=== PATIENT | male | born 1930 | race Caucasian/White ===

== ENCOUNTER 2017-08-02 08:15 | Emergency (ER) ==
[2017-08-02 08:41] VITALS: BP 125/67; TEMP 97.4; BMI 23.0
--- NOTE | 2017-08-02 09:03 | ED.PDOC ---
General ED Provider: Dr. GISELLE FAIR Chief Complaint: Fall Stated Complaint: Patient fell at NH and hit head. He is confused which is status quo. Unable to give any history or ROS. Time Seen by Physician: 09:00 Mode of Arrival: Ambulance Information Source: Prison, EMT Exam Limitations: Dementia Primary Care Provider: NATHAN OROPEZA Nursing and Triage Documentation Reviewed and Agree: Yes Trauma/Injury Complaint Exam - Head Injury Complaint/Exam Location of Pain: Reports: Left, Scalp Mechanism of Injury: Reports: Trauma Onset/Duration: 1 hour ago Symptoms Are: Still present Initial Severity: Moderate Current Severity: Mild Aggravating: Reports: None Alleviating: Reports: None Associated Signs and Symptoms: Reports: Confusion (confusion is normal mental state, unchanged) Loss of Consciousness: Unknown SDH Risk Factors: Present: Male Cervical Spine Injury Risk Factors: Present: Distracting injuries C-Collar in Place: yes Backboard in Place: yes Immobilization Removed Post Exam: No Head Injury Findings: Present: Normal findings Focal Weakness: Present: None Focal Sensory Loss: Present: None Gait: Unable Gag Reflex Present: Yes Finger to Nose: Normal (doesn't follow commands, unable to test finger to nose) , Abnormal Rhomberg Test Positive: No Babinski Sign: Negative Right, Negative Left Head Picture: 1 - "goose egg" with central abrasion Review of Systems - Review Of Systems Constitutional: Reports: No symptoms (ROS not possible secondary to dementia), Other All Other Systems: Other (ROS not possible secondary to dementia) Past Medical History - Past Medical History Endocrine: Reports: Dyslipidemia (cholmeds) Cardiovascular: Reports: CAD, Hypertension Respiratory: Reports: None Hematological: Reports: None Gastrointestinal: Reports: GERD (gerdmeds) Genitourinary: Reports: Other (BPA) Neuro/Psych: Reports: Anxiety, Dementia (dementiameds) Musculoskeletal: Reports: None Cancer: Reports: Other (prostate surgery ) Other Pertinent Past Medical History: htn anx cad BPA prostate surgery dementiameds - Surgical History General Surgical History: Reports: Other (prostate surgery) - Family History Family History: Reports: Unknown - Social History Smoking Status: Never smoker Hx Substance Use: No Alcohol Screening: None Physical Exam - Physical Exam Appearance: Well-appearing, No pain distress, Well-nourished, Thin Ill-appearing: None Pain Distress: Mild Eyes: PINKY, EOMI, Conjunctiva clear ENT: Ears normal, Nose normal, Oropharynx normal Neck: Supple (in c-collar. Removed collar after Ct results reviewed. Neck unremarkable.) Respiratory: Airway patent, Breath sounds clear, Breath sounds equal, Respirations nonlabored Cardiovascular: RRR, Pulses normal, No rub, No murmur GI/: Soft, Nontender, No masses, Bowel sounds normal, No Organomegaly Musculoskeletal: Normal strength, ROM intact, No edema, No calf tenderness Skin: Warm, Dry, Normal color Neurological: Sensation intact, Motor intact, Reflexes intact, Cranial nerves intact, Disoriented, Alert to verbal, Alert to pain Psychiatric: Anxious (confused, doesn't appear to comprehend me or his circumstance) Interpretation - Radiology Interpretation Radiology Results: No acute changes Exam Interpreted: CT Scan Xray Comments: CT head Radiology Interpretation By: Radiologist Radiology Results: No acute changes Exam Interpreted: CT Scan Xray Comments: CT neck Critical Care Note - Critical Care Note Total Time (mins): 0 Course - Course Orders, Labs, Meds: Orders Category Date Time Status CT CERVICAL SPINE W/O CONTRAST Stat RADS 08/02/17 09:[address] HEAD W/O CONTRAST Stat RADS 08/02/17 09:09 Completed Vital Signs: Temp Pulse Resp BP Pulse Ox 08/02/17 08:20 97.4 F L 56 L 16 125/67 98 Departure - Departure Time of Disposition: 10:07 Disposition: TRANSFER SNF Discharge Problem: Abrasion of scalp, Contusion of scalp, Skin tear Instructions: Abrasion (ED), Skin Tear (ED) Condition: Good Pt referred to PMD for follow-up: No (see PCP if any problems) Allergies/Adverse Reactions: Allergies No Known Allergies Allergy (Verified 08/02/17 08:45) Home Medications: Ambulatory Orders Acetaminophen [Tylenol] 650 mg PO Q4H PRN 08/02/17 Alprazolam [Xanax] 0.5 mg PO BID 08/02/17 Aspirin/Dipyridamole [Aggrenox 25 mg-200 mg Capsule] 1 tab PO BID 08/02/17 Cyanocobalamin (Vitamin B-12) [B-12] 500 mcg PO DAILY 08/02/17 Donepezil HCl [Aricept] 10 mg PO DAILY 08/02/17 Finasteride 5 mg PO DAILY 08/02/17 Memantine HCl 10 mg PO BID 08/02/17 Multivitamin with Minerals [Multiple Vitamin] 1 each PO DAILY 08/02/17 Mupirocin Calcium [Bactroban] 15 gm TP Q12HR PRN 08/02/17 Rosuvastatin Calcium [Crestor] 5 mg PO BEDTIME 08/02/17 Sennosides/Docusate Sodium [Senna-Docusate Sodium Tablet] 1 each PO DAILY Tamsulosin HCl [Flomax] 0.4 mg PO DAILY 08/02/17 Disposition Discussed With: Other (NH staff)
--- NOTE | 2017-08-02 09:47 | CT ---
EXAM: CT head without contrast. HISTORY: Initial presentation for head trauma due to a fall. COMPARISON: None available. TECHNIQUE: Multiple axial images of the brain were obtained from the skull base through the vertex without intravenous contrast. FINDINGS: There is no intracranial hemorrhage or extraaxial collection. The lemus-white differentia tion is maintained without evidence for acute large vascular territory infarction. There are areas of periventricular and subcortical white matter low attenuation. The cortical sulci and cerebral ve ntricles are symmetrically enlarged. The basal cisterns are well visualized. There is no hydroceph alus, mass effect, or midline shift. The paranasal sinuses and mastoid air cells are clear. The ca lvarium is intact. IMPRESSION: 1. No acute intracranial abnormality. 2. Chronic small vessel ischemic changes and atrophy.
--- NOTE | 2017-08-02 09:53 | CT ---
EXAM: CT cervical spine without contrast. HISTORY: Initial presentation for neck injury due to a fall. COMPARISON: None available. TECHNIQUE: Multiple axial images of the cervical spine were obtained without intravenous contrast. Images were reformatted in the sagittal and coronal planes. FINDINGS: Approximately 0.2 cm retrolisthesis of C3 on C4 noted. There is less than 0.2 cm anterol isthesis of C7 on T1. Nonspecific sclerotic lesion is seen within the T1 vertebral body on sagittal image 39. Vertebral body heights are maintained without fracture. There is moderate loss of disc height at C3-4 through C6-7. Disc osteophyte formation flattens the ventral thecal sac at C3-4. No significant spinal stenosis identified. Disc osteophyte formation along with uncovertebral hypertr ophy and facet arthropathy cause multilevel neural foraminal narrowing, severe at C3-4 on the left a nd moderate to severe C4-5 on the right and more mild to moderate elsewhere. Paravertebral soft tis marlen are without acute abnormality.. Atherosclerotic calcifications are present. Right lobe of the thyroid not identified. Probable biapical scarring within the visualized lungs. IMPRESSION: No acute abnormality of the cervical spine.
== END 2017-08-02 10:32 ==
LOC: ED 08:15
DX: S00.03XA Contusion of scalp, initial encounter (principal); S00.01XA Abrasion of scalp, initial encounter; T14.8 Other injury of unspecified body region; W19.XXXA Unspecified fall, initial encounter; Y92.129 Unspecified place in nursing home as the place of occurrence of the external cause; Z79.899 Other long term (current) drug therapy
CPT/HCPCS: 99283

== ENCOUNTER 2017-08-15 14:20 | Inpatient (IN) ==
[2017-08-15 14:36] VITALS: BMI 19.4
[2017-08-15 15:07] LABS: ABG BASE EXCESS 1 (-2.0-2.0); ABG HCO3 23.9 (22.0-26.0); ABG PCO2 31.2 mmHg (35-45); ABG PH 7.492 (7.35-7.45); ABG TCO2 25 (22.0-28.0)
--- NOTE | 2017-08-15 15:11 | CT ---
EXAM: CT Head HISTORY: Altered mental status and cough COMPARISON: 08/14/2017 TECHNIQUE: CT head performed without contrast FINDINGS: There is no mass effect, midline shift, or intracranial hemmorhage. Gar white differenti ation is preserved. There is no extra-axial collection. The ventricles, sulci, and basal cisterns a re patent and symmetric. There is severe chronic ischemic disease of the white matter and cerebral v olume loss. There is no depressed calvarial fracture. Dolichoectasia right vertebral artery appears unchanged. The mastoid air cells are clear. There is worsening of the ethmoid air cells and right max illary sinus. There are intracranial atherosclerotic calcifications. IMPRESSION: 1. No acute intracranial abnormality. 2. Severe chronic ischemic disease of the white matter and cerebral volume loss. 3. Sinusitis
[2017-08-15 15:14] LABS: HEMATOCRIT 39.6 % (42.0-52.0); HEMOGLOBIN 13.8 g/dl (14.0-18.0); MEAN CORPUSCULAR HEMOGLOBIN 34.3 pg (27.0-31.0); MEAN CORPUSCULAR HGB CONC 34.8 (31.8-35.4); MEAN CORPUSCULAR VOLUME 98.5 fl (80.0-94.0); PLATELET COUNT 226 10^3/uL (140-440); RED BLOOD COUNT 4.02 10^6/ul (4.70-6.10); WHITE BLOOD COUNT 8.91 K/ul (4.2-10.2)
--- NOTE | 2017-08-15 15:15 | CT ---
EXAM: CT chest without contrast HISTORY: Cough COMPARISON: Chest x-ray 08/02/2015 and multiple prior chest x-rays TECHNIQUE: Serial axial images of the chest were obtained from the lung apices to the upper abdomen without contrast. These were viewed in multiple planes. FINDINGS: The thyroid is normal. The visualized vessels are unremarkable without aneurysm or stenos is. The heart is normal in size without pericardial effusion. There are nonpathologically enlarged lymph nodes with a precarinal lymph node measuring 0.8 cm in diameter. There is no pneumothorax. There is no effusion. There is consolidation in the right lower lobe with patchy ground-glass. There is airway thickening which extends into the right middle lobe. Airway t hickening in the left lower lobe is present. The left lower lobe measures 1.1 cm in diameter. The kidneys demonstrate an exophytic 2.3 cm low attenuation lesion suggestive of a cyst. There is a 0.8 cm nonobstructing stone on the left. The osseous structures are unremarkable. IMPRESSION: 1. Consolidation in the right lower lobe consistent with pneumonia. Scattered airway thickening, li flaquito representing airways spread of disease. 2. Left lower lobe pulmonary nodule measuring 1.1 cm in diameter. This may represent inflammation v ersus soft tissue nodule. Soft tissue sampling versus further evaluation with short-term follow-up C T or PET CT is recommended. 3. Nonobstructing left renal stone with left renal cyst present. 4. Nonpathologically enlarged lymph nodes may be reactive.
[2017-08-15 15:29] LABS: ANISOCYTOSIS NOT PRESENT (NOT PRESENT)
[2017-08-15 15:32] LABS: PROTHROMBIN TIME 10.8 SEC (9.3-11.0)
[2017-08-15 16:01] LABS: ALBUMIN 2.9 g/dL (3.4-5.0); ALBUMIN/GLOBULIN RATIO 0.59; ANION GAP 15.6; BILIRUBIN,TOTAL 0.6 mg/dL (0.00-1.20); BUN/CREATININE RATIO 31.87; CALCIUM 9.8 mg/dL (8.2-10.2); CREATININE 1.6 mg/dL (0.60-1.10); POTASSIUM 3.6 mmol/L (3.5-5.1); TOTAL PROTEIN 7.8 g/dL (5.8-8.1); TROPONIN I 0.013 ng/ml (0.0000-0.4000)
[2017-08-15 16:05] LABS: CREATINE KINASE MB 1.1 ng/ml (0.0-3.6)
[2017-08-15] MEDS ORDERED: TYLENOL PO PRN (16:14)
--- NOTE | 2017-08-15 16:19 | ED.PDOC ---
General ED Provider: Dr. MADALYN GREENE Chief Complaint: Shortness of Air Stated Complaint: ALTERED MENTAL STATUS Time Seen by Physician: 14:30 Mode of Arrival: Ambulance Information Source: Skilled Nursing, EMT Exam Limitations: No limitations Primary Care Provider: NATHAN OROPEZA Nursing and Triage Documentation Reviewed and Agree: Yes Neurological Complaint Exam - Altered Mental Status Complaint/Exam Current Mental Status: Agitation Last Known Well: 2 DAYS AGO Onset: Gradual Duration: 1 DAY Symptoms Are: Still present Timing: Constant Initial Severity: Mild Current Severity: Mild Eye Deviation Present: No Aggravating: Reports: None Alleviating: Reports: None Associated Signs and Symptoms: Reports: Weakness. Denies: Dizziness, Headache, Fever, Illness, Nuchal rigidity, Seizure, Nausea, Vomiting, Recently depressed, Trauma Related History: Reports: Similar episode Cardiac Risk Factors: Reports: None Related Surgical History: Reports: None Carotid Bruit Present: No Glascow Coma Scale (see protocol): 15 Nystagmus Present: No Gag Reflex Present: No Meningeal Signs Positive: No Focal Weakness: Present: None Focal Sensory Loss: Present: None Gait: Normal Babinski Sign: Negative Right, Negative Left Differential Diagnoses: Hypothermia, Hypoxia, Intoxication, Intracranial Bleed, Metabolic Disorder, Hypoglycemia, Seizure, Sepsis, CVA Review of Systems - Review Of Systems Constitutional: Reports: Malaise, Weakness Eyes: Reports: No symptoms Ears, Nose, Mouth, Throat: Reports: No symptoms Respiratory: Reports: No symptoms Cardiac: Reports: No symptoms GI: Reports: No symptoms : Reports: No symptoms Musculoskeletal: Reports: No symptoms Skin: Reports: No symptoms Neurological: Reports: Cognitive dysfunction Endocrine: Reports: No symptoms Hematologic/Lymphatic: Reports: No symptoms All Other Systems: Reviewed and Negative Past Medical History - Past Medical History Previously Healthy: Yes Endocrine: Reports: Dyslipidemia (cholmeds) Cardiovascular: Reports: CAD, Hypertension Respiratory: Reports: None Hematological: Reports: None Gastrointestinal: Reports: GERD (gerdmeds) Genitourinary: Reports: Other (BPA) Neuro/Psych: Reports: Anxiety, Dementia (dementiameds) Musculoskeletal: Reports: None Cancer: Reports: Other (prostate surgery ) Other Pertinent Past Medical History: htn anx cad BPA prostate surgery dementiameds - Surgical History General Surgical History: Reports: None, Other (prostate surgery) - Family History Family History: Reports: Unknown - Social History Smoking Status: Never smoker Hx Substance Use: No Alcohol Screening: None - Immunizations Tetanus Shot up to Date: Yes Physical Exam - Physical Exam Appearance: Ill-appearing Ill-appearing: Mild Pain Distress: Mild Eyes: PINKY, EOMI, Conjunctiva clear ENT: Dry mucosa Respiratory: Airway patent, Breath sounds clear, Breath sounds equal, Respirations nonlabored Cardiovascular: RRR, Pulses normal, No rub, No murmur GI/: Soft, Nontender, No masses, Bowel sounds normal, No Organomegaly Musculoskeletal: Normal strength, ROM intact, No edema, No calf tenderness Skin: Warm, Dry, Normal color Neurological: Sensation intact, Motor intact, Reflexes intact, Cranial nerves intact, Alert, Oriented Psychiatric: Affect appropriate, Mood appropriate Interpretation - Radiology Interpretation Radiology Interpretation By: Radiologist Radiology Results: Positive (PNEUMONIA) Physician Notification - Case Discussed Physician Notified: PMD Time of Notification: 16:19 (ADMITT) Admit To: Inpatient Critical Care Note - Critical Care Note Total Time (mins): 0 Course - Course Hematology/Chemistry: 08/21/17 04:30 08/21/17 04:30 Orders, Labs, Meds: Lab Review 08/15/17 08/15/17 08/15/17 14:29 15:00 15:00 WBC 8.91 RBC 4.02 L Hgb 13.8 L Hct 39.6 L MCV 98.5 H MCH 34.3 H MCHC 34.8 RDW Coeff of Madi 15.1 H Plt Count 226 Neutrophils % (Manual) 41.0 L Band Neutrophils % 52.0 H Lymphocytes % (Manual) 2.0 L Monocytes % (Manual) 3.0 Metamyelocytes % 2.0 Anisocytosis Not present PT INR APTT Puncture Site Rad O2 Saturation 93.0 L ABG pH 7.492 H ABG pCO2 31.2 L ABG pO2 61.0 L ABG HCO3 23.9 ABG Total CO2 25 ABG Base Excess 1 Sammy Test + FiO2 % 21.0 Sodium 146 H Potassium 3.6 Chloride 109 H Carbon Dioxide 25 Anion Gap 15.6 BUN 51 H Creatinine 1.60 H Estimated GFR (MDRD) 41.00 BUN/Creatinine Ratio 31.87 Glucose 147 H Lactic Acid Calcium 9.8 Total Bilirubin 0.60 AST 18 ALT 18 Alkaline Phosphatase 72 Total Creatine Kinase 163 CK-MB (CK-2) 1.1 CK-MB (CK-2) % 0.88019 Troponin I 0.0130 B-Natriuretic Peptide Total Protein 7.8 Albumin 2.9 L Globulin 4.9 Albumin/Globulin Ratio 0.59 Procalcitonin TSH 0.778 Free T4 0.86 08/15/17 08/15/17 08/15/17 15:00 15:00 15:00 WBC RBC Hgb Hct MCV MCH MCHC RDW Coeff of Madi Plt Count Neutrophils % (Manual) Band Neutrophils % Lymphocytes % (Manual) Monocytes % (Manual) Metamyelocytes % Anisocytosis PT 10.8 INR 1.06 APTT 27.0 Puncture Site O2 Saturation ABG pH ABG pCO2 ABG pO2 ABG HCO3 ABG Total CO2 ABG Base Excess Sammy Test FiO2 % Sodium Potassium Chloride Carbon Dioxide Anion Gap BUN Creatinine Estimated GFR (MDRD) BUN/Creatinine Ratio Glucose Lactic Acid 23.9 H Calcium Total Bilirubin AST ALT Alkaline Phosphatase Total Creatine Kinase CK-MB (CK-2) CK-MB (CK-2) % Troponin I B-Natriuretic Peptide Total Protein Albumin Globulin Albumin/Globulin Ratio Procalcitonin 3.47 TSH Free T4 08/15/17 15:00 WBC RBC Hgb Hct MCV MCH MCHC RDW Coeff of Madi Plt Count Neutrophils % (Manual) Band Neutrophils % Lymphocytes % (Manual) Monocytes % (Manual) Metamyelocytes % Anisocytosis PT INR APTT Puncture Site O2 Saturation ABG pH ABG pCO2 ABG pO2 ABG HCO3 ABG Total CO2 ABG Base Excess Sammy Test FiO2 % Sodium Potassium Chloride Carbon Dioxide Anion Gap BUN Creatinine Estimated GFR (MDRD) BUN/Creatinine Ratio Glucose Lactic Acid Calcium Total Bilirubin AST ALT Alkaline Phosphatase Total Creatine Kinase CK-MB (CK-2) CK-MB (CK-2) % Troponin I B-Natriuretic Peptide 105 H Total Protein Albumin Globulin Albumin/Globulin Ratio Procalcitonin TSH Free T4 Orders Category Date Time Status ABG DRAW REQUEST Stat CARDIO 08/15/17 14:29 Completed EKG-(ED ONLY) Stat CARDIO 08/15/17 14:26 Completed ED IV/MEDIPORT/POWERPORT .ONCE EMERGENCY 08/15/17 14:26 Completed ABG Stat LAB 08/15/17 14:29 Completed B-TYPE NATRIURETIC PEPTIDE Stat LAB 08/15/17 15:00 Completed BLOOD CULTURE Stat LAB 08/15/17 15:00 Completed CBC W/ AUTO DIFF Stat LAB 08/15/17 15:00 Completed COMPREHENSIVE METABOLIC PANEL Stat LAB 08/15/17 15:00 Completed CREATINE KINASE Stat LAB 08/15/17 15:00 Completed FREE T4 (FREE THYROXINE) Stat LAB 08/15/17 15:00 Completed LACTIC ACID Stat LAB 08/15/17 15:00 Completed MANUAL DIFFERENTIAL Stat LAB 08/15/17 15:00 Completed PARTIAL THROMBOPLASTIN TIME Stat LAB 08/15/17 15:00 Completed PROCALCITONIN Stat LAB 08/15/17 15:00 Completed PT WITH INR Stat LAB 08/15/17 15:00 Completed THYROID STIMULATING HORMONE Stat LAB 08/15/17 15:00 Completed TROPONIN I Stat LAB 08/15/17 15:00 Completed 0.9 % Sodium Chloride [Saline Flush] MEDS 08/15/17 14:26 Discontinued 1 syr IVF PRN PRN CT CHEST W/O CONTRAST Stat RADS 08/15/17 14:[address] HEAD W/O CONTRAST Stat RADS 08/15/17 14:25 Completed Medications Discontinued Medications Generic Name Dose Route Start Last Admin Trade Name Freq PRN Reason Stop Dose Admin Acetaminophen 650 mg 08/15/17 16:14 Tylenol PO Q4H PRN Fever >101 Albuterol/Ipratropium 1 vial 08/15/17 18:00 08/15/17 18:05 Duoneb NEB 1 vial RTBID EMANI Administration Albuterol/Ipratropium 1 vial 08/16/17 00:00 08/21/17 11:19 Duoneb NEB 1 vial [id number] EMANI Administration Alprazolam 0.5 mg 08/15/17 21:00 08/21/17 08:56 Xanax PO 0.5 mg BID EMANI Administration Dipyridamole/Aspirin 1 cap 08/15/17 21:00 08/21/17 08:56 Aggrenox Capsule PO 1 cap BID EMANI Administration Finasteride 5 mg 08/16/17 09:00 08/21/17 08:56 Proscar PO 5 mg DAILY EMANI Administration Ceftriaxone Sodium 1 gm/ 50 mls @ 75 mls/hr 08/16/17 09:00 08/21/17 08:51 Sodium Chloride IV Not Given DAILY EMANI Azithromycin 500 mg/ Sodium 250 mls @ 125 mls/hr 08/15/17 16:30 08/17/17 09: 04 Chloride IV 08/17/17 12:00 125 mls/hr DAILY EMANI Administration Dextrose/Sodium Chloride 1,000 mls @ 75 mls/hr 08/15/17 17:00 08/19/17 08:55 Dextrose 5%-1/2ns Iv Solution IV Not Given .[id number] EMANI Dextrose 1,000 mls @ 75 mls/hr 08/19/17 09:00 08/21/17 00:38 Dextrose 5%-Water Iv Soln IV 75 mls/hr .[id number] EMANI Administration Memantine 10 mg 08/15/17 21:00 08/21/17 08:56 Namenda PO 10 mg BID EMANI Administration Methylprednisolone Sodium Succinate 125 mg 08/15/17 17:00 08/19/17 04:44 Solu-Medrol 125 Mg IVP 125 mg Q8HR EMANI Administration Mupirocin 1 applic 08/15/17 21:00 08/21/17 12:53 Bactroban TP Not Given Q8HR EMANI Prednisone 10 mg 08/19/17 17:30 08/21/17 08:56 Prednisone PO 10 mg BIDWM EMANI Administration Sodium Chloride 1 syr 08/15/17 14:26 08/19/17 04:44 Saline Flush IVF 1 syr PRN PRN Administration To flush IV Tamsulosin HCl 0.4 mg 08/16/17 09:00 08/21/17 08:56 Flomax PO 0.4 mg DAILY EMANI Administration Vital Signs: Temp Pulse Resp BP Pulse Ox 08/15/17 14:23 98 F 114 H 20 115/65 88 L Departure - Departure Time of Disposition: 16:20 Disposition: ADMITTED INPATIENT Discharge Problem: Pneumonia Qualifiers: Pneumonia type: due to unspecified organism Laterality: unspecified laterality Lung location: unspecified part of lung Qualified Code(s): J18.9 - Pneumonia, unspecified organism Condition: Good Pt referred to PMD for follow-up: Yes Allergies/Adverse Reactions: Allergies No Known Allergies Allergy (Verified 08/02/17 08:45) Home Medications: Ambulatory Orders Acetaminophen [Tylenol] 650 mg PO Q4H PRN 08/02/17 Alprazolam [Xanax] 0.5 mg PO BID 08/02/17 Aspirin/Dipyridamole [Aggrenox 25 mg-200 mg Capsule] 1 tab PO BID 08/02/17 Cyanocobalamin (Vitamin B-12) [B-12] 500 mcg PO DAILY 08/02/17 Finasteride 5 mg PO DAILY 08/02/17 Memantine HCl 10 mg PO BID 08/02/17 Sennosides/Docusate Sodium [Senna-Docusate Sodium Tablet] 1 each PO DAILY Tamsulosin HCl [Flomax] 0.4 mg PO DAILY 08/02/17 Mupirocin Calcium [Bactroban] 1 applic TP Q8HR 08/15/17 Albuterol Sulfate 0.083% Neb [Albuterol 0.083% Neb] 1 vial NEB RTBID #60 vial.neb 08/21/17 Cephalexin [Keflex] 500 mg PO Q12HR #10 capsule 08/21/17 Prednisone 10 mg PO BIDWM #5 tablet 08/21/17 Disposition Discussed With: Patient
[2017-08-15] MEDS ORDERED: SODIUM CHLORIDE 1,000 ML IV SCH (16:30)
[2017-08-15] MEDS: ROCEPHIN 1 GM in SODIUM CHLORIDE 50 ML IV SCH (17:08)
[2017-08-15] MEDS: DEXTROSE 5%-1/2NS IV SOLUTION 1,000 ML IV SCH (17:08)
[2017-08-15] MEDS: SOLU-MEDROL 125 MG IVP SCH ×2 (17:10→22:03)
[2017-08-15] MEDS ORDERED: DUONEB NEB SCH (18:00)
[2017-08-15] MEDS: ZITHROMAX 500 MG in SODIUM CHLORIDE 250 ML IV SCH (18:55)
[2017-08-15] MEDS ORDERED: MUPIROCIN CALCIUM TP SCH (21:00)
[2017-08-15] MEDS: AGGRENOX CAPSULE PO SCH (22:03)
[2017-08-15] MEDS: XANAX PO SCH (22:04)
[2017-08-15] MEDS: BACTROBAN TP SCH (22:04)
[2017-08-15] MEDS: NAMENDA PO SCH (22:04)
[2017-08-15] MEDS: DUONEB NEB SCH (22:30)
[2017-08-15] MEDS ORDERED: DUONEB NEB ONE (22:30)
[2017-08-15 22:59] LABS: TROPONIN I 0.017 ng/ml (0.0000-0.4000)
[2017-08-15 23:01] LABS: CREATINE KINASE MB 0.9 ng/ml (0.0-3.6)
[2017-08-16] MEDS: BACTROBAN TP SCH ×3 (04:08→20:34)
[2017-08-16] MEDS: SOLU-MEDROL 125 MG IVP SCH ×3 (04:09→20:26)
[2017-08-16 04:49] LABS: HEMATOCRIT 36.1 % (42.0-52.0); HEMOGLOBIN 12.3 g/dl (14.0-18.0); MEAN CORPUSCULAR HEMOGLOBIN 33.5 pg (27.0-31.0); MEAN CORPUSCULAR HGB CONC 34.1 (31.8-35.4); MEAN CORPUSCULAR VOLUME 98.4 fl (80.0-94.0); PLATELET COUNT 191 10^3/uL (140-440); RED BLOOD COUNT 3.67 10^6/ul (4.70-6.10); WHITE BLOOD COUNT 7.26 K/ul (4.2-10.2)
[2017-08-16 04:51] LABS: ANISOCYTOSIS NOT PRESENT (NOT PRESENT)
[2017-08-16] MEDS: DUONEB NEB SCH ×4 (04:55→22:28)
[2017-08-16 05:17] LABS: ALBUMIN 2.1 g/dL (3.4-5.0); ALBUMIN/GLOBULIN RATIO 0.48; BILIRUBIN,TOTAL 0.42 mg/dL (0.00-1.20); BUN/CREATININE RATIO 38.84; CREATININE 1.39 mg/dL (0.60-1.10); TOTAL PROTEIN 6.5 g/dL (5.8-8.1)
[2017-08-16 05:39] LABS: CREATINE KINASE MB 1.1 ng/ml (0.0-3.6)
[2017-08-16] MEDS: DEXTROSE 5%-1/2NS IV SOLUTION 1,000 ML IV SCH (09:10)
[2017-08-16] MEDS: ZITHROMAX 500 MG in SODIUM CHLORIDE 250 ML IV SCH (09:28)
[2017-08-16] MEDS: FLOMAX PO SCH (11:24)
[2017-08-16] MEDS: PROSCAR PO SCH (11:24)
[2017-08-16] MEDS: AGGRENOX CAPSULE PO SCH ×2 (11:24→20:28)
[2017-08-16] MEDS: NAMENDA PO SCH ×2 (11:24→20:28)
[2017-08-16] MEDS: XANAX PO SCH ×2 (11:25→20:28)
[2017-08-16] MEDS: ROCEPHIN 1 GM in SODIUM CHLORIDE 50 ML IV SCH (12:03)
[2017-08-17] MEDS: DEXTROSE 5%-1/2NS IV SOLUTION 1,000 ML IV SCH ×2 (00:39→15:25)
[2017-08-17] MEDS: DUONEB NEB SCH ×4 (04:48→23:14)
[2017-08-17] MEDS: SOLU-MEDROL 125 MG IVP SCH ×3 (05:10→20:09)
[2017-08-17] MEDS: BACTROBAN TP SCH ×3 (05:11→20:09)
[2017-08-17 05:32] LABS: BASOPHILS % (AUTO) 0.3 % (0.0-3.0); HEMATOCRIT 35.4 % (42.0-52.0); HEMOGLOBIN 12.3 g/dl (14.0-18.0); IMMATURE GRANULOCYTE % (AUTO) 1.5 % (0.0-5.0); LYMPHOCYTES # (AUTO) 0.3 K/uL (0.60-3.4); LYMPHOCYTES % (AUTO) 2.7 (10.0-50.0); MEAN CORPUSCULAR HEMOGLOBIN 34.5 pg (27.0-31.0); MEAN CORPUSCULAR HGB CONC 34.7 (31.8-35.4); MEAN CORPUSCULAR VOLUME 99.2 fl (80.0-94.0); MONOCYTES # (AUTO) 0.4 K/uL (0.4-2.0); MONOCYTES % (AUTO) 3.8 (0-10); NEUTROPHILS % (AUTO) 91.7; PLATELET COUNT 198 10^3/uL (140-440); RED BLOOD COUNT 3.57 10^6/ul (4.70-6.10); WHITE BLOOD COUNT 10.93 K/ul (4.2-10.2)
[2017-08-17 05:55] LABS: ALBUMIN 2.2 g/dL (3.4-5.0); ALBUMIN/GLOBULIN RATIO 0.49; ANION GAP 15.3; BILIRUBIN,TOTAL 0.32 mg/dL (0.00-1.20); BUN/CREATININE RATIO 48.67; CALCIUM 8.9 mg/dL (8.2-10.2); CREATININE 1.13 mg/dL (0.60-1.10); POTASSIUM 3.3 mmol/L (3.5-5.1); TOTAL PROTEIN 6.7 g/dL (5.8-8.1)
[2017-08-17] MEDS: ROCEPHIN 1 GM in SODIUM CHLORIDE 50 ML IV SCH (08:27)
[2017-08-17] MEDS: AGGRENOX CAPSULE PO SCH ×2 (08:27→20:09)
[2017-08-17] MEDS: FLOMAX PO SCH (08:28)
[2017-08-17] MEDS: NAMENDA PO SCH ×2 (08:28→20:09)
[2017-08-17] MEDS: PROSCAR PO SCH (08:29)
[2017-08-17] MEDS: XANAX PO SCH ×2 (08:29→20:09)
[2017-08-17] MEDS: ZITHROMAX 500 MG in SODIUM CHLORIDE 250 ML IV SCH (09:04)
[2017-08-18] MEDS: DEXTROSE 5%-1/2NS IV SOLUTION 1,000 ML IV SCH ×2 (04:32→19:27)
[2017-08-18] MEDS: SOLU-MEDROL 125 MG IVP SCH ×3 (04:33→21:09)
[2017-08-18] MEDS: BACTROBAN TP SCH ×3 (04:33→21:09)
[2017-08-18] MEDS: DUONEB NEB SCH ×3 (04:48→18:24)
[2017-08-18 05:19] LABS: HEMATOCRIT 33.6 % (42.0-52.0); HEMOGLOBIN 11.7 g/dl (14.0-18.0); IMMATURE GRANULOCYTE % (AUTO) 0.5 % (0.0-5.0); LYMPHOCYTES # (AUTO) 0.3 K/uL (0.60-3.4); LYMPHOCYTES % (AUTO) 4.2 (10.0-50.0); MEAN CORPUSCULAR HEMOGLOBIN 34.5 pg (27.0-31.0); MEAN CORPUSCULAR HGB CONC 34.8 (31.8-35.4); MEAN CORPUSCULAR VOLUME 99.1 fl (80.0-94.0); MONOCYTES # (AUTO) 0.4 K/uL (0.4-2.0); MONOCYTES % (AUTO) 5.6 (0-10); NEUTROPHILS # (AUTO) 5.9 K/ul (2.0-6.9); NEUTROPHILS % (AUTO) 89.7; PLATELET COUNT 196 10^3/uL (140-440); RED BLOOD COUNT 3.39 10^6/ul (4.70-6.10); WHITE BLOOD COUNT 6.61 K/ul (4.2-10.2)
[2017-08-18 05:48] LABS: ALBUMIN 2.1 g/dL (3.4-5.0); ALBUMIN/GLOBULIN RATIO 0.51; ANION GAP 14.5; BILIRUBIN,TOTAL 0.35 mg/dL (0.00-1.20); BUN/CREATININE RATIO 52.29; CALCIUM 8.5 mg/dL (8.2-10.2); CREATININE 1.09 mg/dL (0.60-1.10); POTASSIUM 3.5 mmol/L (3.5-5.1); TOTAL PROTEIN 6.2 g/dL (5.8-8.1)
[2017-08-18] MEDS: ROCEPHIN 1 GM in SODIUM CHLORIDE 50 ML IV SCH (09:56)
[2017-08-18] MEDS: AGGRENOX CAPSULE PO SCH ×2 (09:56→21:08)
[2017-08-18] MEDS: FLOMAX PO SCH (09:56)
[2017-08-18] MEDS: PROSCAR PO SCH (09:57)
[2017-08-18] MEDS: XANAX PO SCH ×2 (09:57→21:09)
[2017-08-18] MEDS: NAMENDA PO SCH ×2 (09:57→21:08)
[2017-08-19] MEDS: DUONEB NEB SCH ×5 (00:10→23:00)
[2017-08-19] MEDS: SOLU-MEDROL 125 MG IVP SCH (04:44)
[2017-08-19] MEDS: BACTROBAN TP SCH ×2 (04:45→21:09)
[2017-08-19 04:57] LABS: BASOPHILS % (AUTO) 0.3 % (0.0-3.0); HEMATOCRIT 34.6 % (42.0-52.0); HEMOGLOBIN 11.8 g/dl (14.0-18.0); IMMATURE GRANULOCYTE % (AUTO) 0.3 % (0.0-5.0); LYMPHOCYTES # (AUTO) 0.2 K/uL (0.60-3.4); LYMPHOCYTES % (AUTO) 3.6 (10.0-50.0); MEAN CORPUSCULAR HEMOGLOBIN 33.9 pg (27.0-31.0); MEAN CORPUSCULAR HGB CONC 34.1 (31.8-35.4); MEAN CORPUSCULAR VOLUME 99.4 fl (80.0-94.0); MONOCYTES # (AUTO) 0.3 K/uL (0.4-2.0); MONOCYTES % (AUTO) 4.6 (0-10); NEUTROPHILS # (AUTO) 5.4 K/ul (2.0-6.9); NEUTROPHILS % (AUTO) 91.2; PLATELET COUNT 189 10^3/uL (140-440); RED BLOOD COUNT 3.48 10^6/ul (4.70-6.10)
[2017-08-19 05:19] LABS: ALBUMIN 2.1 g/dL (3.4-5.0); ALBUMIN/GLOBULIN RATIO 0.58; ANION GAP 15.6; BILIRUBIN,TOTAL 0.37 mg/dL (0.00-1.20); BUN/CREATININE RATIO 49.01; CALCIUM 8.3 mg/dL (8.2-10.2); CREATININE 1.02 mg/dL (0.60-1.10); POTASSIUM 3.6 mmol/L (3.5-5.1); TOTAL PROTEIN 5.7 g/dL (5.8-8.1)
[2017-08-19] MEDS: ROCEPHIN 1 GM in SODIUM CHLORIDE 50 ML IV SCH (08:00)
[2017-08-19] MEDS: PROSCAR PO SCH (08:01)
[2017-08-19] MEDS: XANAX PO SCH ×2 (08:01→21:09)
[2017-08-19] MEDS: AGGRENOX CAPSULE PO SCH ×2 (08:01→21:09)
[2017-08-19] MEDS: NAMENDA PO SCH ×2 (08:01→21:09)
[2017-08-19] MEDS: FLOMAX PO SCH (08:01)
[2017-08-19] MEDS ORDERED: DEXTROSE 5%-1/2NS IV SOLUTION 1,000 ML IV SCH (08:36)
[2017-08-19] MEDS: DEXTROSE 5%-1/2NS IV SOLUTION 1,000 ML IV SCH (08:55)
[2017-08-19] MEDS: DEXTROSE 5%-WATER IV SOLN 1,000 ML IV SCH ×2 (09:00→22:36)
--- NOTE | 2017-08-19 12:53 | DI ---
EXAM: Chest one view, frontal view only. HISTORY: Right lower lobe consolidation. Follow-up. COMPARISON: CT 08/15/2017. FINDINGS: Heart size is normal. Right lower lobe consolidation is probably stable. Left basilar co nsolidation appears to be present, which is new. Upper lungs are clear. No large pleural effusion or pneumothorax identified IMPRESSION: Stable right basilar consolidation. New left basilar consolidation. Continued follow-up is recommen ded.
[2017-08-19] MEDS: PREDNISONE PO SCH (17:41)
[2017-08-20] MEDS: DUONEB NEB SCH ×4 (05:05→23:00)
[2017-08-20 05:28] LABS: HEMATOCRIT 33.6 % (42.0-52.0); HEMOGLOBIN 11.7 g/dl (14.0-18.0); IMMATURE GRANULOCYTE % (AUTO) 0.8 % (0.0-5.0); LYMPHOCYTES # (AUTO) 0.4 K/uL (0.60-3.4); LYMPHOCYTES % (AUTO) 5.4 (10.0-50.0); MEAN CORPUSCULAR HEMOGLOBIN 34.4 pg (27.0-31.0); MEAN CORPUSCULAR HGB CONC 34.8 (31.8-35.4); MEAN CORPUSCULAR VOLUME 98.8 fl (80.0-94.0); MONOCYTES # (AUTO) 0.6 K/uL (0.4-2.0); MONOCYTES % (AUTO) 7.1 (0-10); NEUTROPHILS # (AUTO) 6.9 K/ul (2.0-6.9); NEUTROPHILS % (AUTO) 86.7; PLATELET COUNT 200 10^3/uL (140-440); WHITE BLOOD COUNT 7.91 K/ul (4.2-10.2)
[2017-08-20 06:00] LABS: ALBUMIN/GLOBULIN RATIO 0.57; BILIRUBIN,TOTAL 0.47 mg/dL (0.00-1.20); BUN/CREATININE RATIO 38.04; CREATININE 0.92 mg/dL (0.60-1.10); TOTAL PROTEIN 5.5 g/dL (5.8-8.1)
[2017-08-20] MEDS: PROSCAR PO SCH (08:36)
[2017-08-20] MEDS: FLOMAX PO SCH (08:36)
[2017-08-20] MEDS: XANAX PO SCH ×2 (08:36→20:03)
[2017-08-20] MEDS: NAMENDA PO SCH ×2 (08:36→20:04)
[2017-08-20] MEDS: ROCEPHIN 1 GM in SODIUM CHLORIDE 50 ML IV SCH (08:36)
[2017-08-20] MEDS: PREDNISONE PO SCH ×2 (08:36→17:44)
[2017-08-20] MEDS: AGGRENOX CAPSULE PO SCH ×2 (08:36→20:03)
[2017-08-20] MEDS: BACTROBAN TP SCH ×3 (08:45→20:04)
[2017-08-20] MEDS: DEXTROSE 5%-WATER IV SOLN 1,000 ML IV SCH (12:08)
--- NOTE | 2017-08-20 14:03 | PCM.PROG ---
Attending Provider: ATTENDING PROVIDER: Dr. NATHAN FU This patient is seen with Maryan Perdue, Nurse Practitioner DATE OF SERVICE: 08/16/17 SUBJECTIVE: This 86 year old WHITE/ M was hospitalized 08/15/17. The patient is lying in bed, confused due to dementia. CT showed left pneumonia. REVIEW OF SYSTEMS: CONSTITUTIONAL: No night sweats. No fatigue, malaise, lethargy. No fever or chills. HEENT: Eyes: No visual changes. No eye pain. No eye discharge. ENT: No runny nose. No epistaxis. No sinus pain. No odynophagia. No congestion. RESPIRATORY: Cough and congestion. No hemoptysis. Shortness of breath. CARDIOVASCULAR: No angina symptoms. No CHF symptoms. No atypical chest pain for CAD. No palpitations. No orthopnea.. GASTROINTESTINAL: No abdominal pain. No nausea or vomiting. No diarrhea or constipation. No hematemesis. No hematochezia. GENITOURINARY: No urgency. No frequency. No dysuria. No hematuria. No obstructive symptoms. No discharge. No pain. No significant abnormal bleeding. MUSCULOSKELETAL: No musculoskeletal pain; no joint swelling. NEUROLOGICAL: Awake, confused. No headache. No neck pain. No syncope. No seizures. No dizziness. PSYCHIATRIC: Not anxious. No depression. No suicidal thoughts. No homicidal thoughts. SKIN: Multiple scabbed areas due to chronic picking present on admission. ENDOCRINE: No unexplained weight loss. No weight gain. HEMATOLOGIC/LYMPHATIC: No anemia. No purpura. No petechiae. No prolonged or excessive bleeding. No palpable lymph nodes. PHYSICAL EXAMINATION: GENERAL: The patient is awake, confused, lying in bed in no distress. VITAL SIGNS: Temperature 97.4 F, Pulse 80, Respiratory Rate 18, BP 116/70, Pulse Ox 88% HEENT: Head normocephalic, atraumatic. Eyes: Extraocular muscles are intact. Pupils are equal, round and reactive to light and accommodation. Ears: No lesions. Nose appeared normal. Throat: No exudate or erythema. NECK: Supple. No JVD, no carotid bruit. No lymphadenopathy or thyromegaly. LUNGS: Diminished breath sounds bilaterally. Percussion note normal. Chest symmetrical. HEART: S1, S2, no S3. No murmurs. No cyanosis or clubbing. No ascites. Pulses: Dorsalis pedis and posterior tibial pulses +1 to +2 both sides. ABDOMEN: Soft. Non-tender. Bowel sounds active. No CVA tenderness. No mass felt. EXTREMITIES: Multiple scabbed areas due to chronic picking present on admission. No edema. Full range of motion of all extremities, equal. NEUROLOGIC: No focal deficit. Cranial nerves II through XII are grossly intact. No headache, no double vision or headache. SKIN: Dry. Intact. Turgor-normal. LYMPHATIC: No palpable lymph nodes/no lymphedema. MUSCULOSKELETAL: Normal joints with no swelling. Muscle tone is normal. LAB REVIEW: 08/16/17 04:30 08/16/17 04:30 08/16/17 04:30: Total Creatine Kinase 121, CK-MB (CK-2) 1.1, CK-MB (CK-2) % 0.71752 08/16/17 04:30: Troponin I 0.0230 08/16/17 04:30: Sodium 145, Potassium 4.0, Chloride 113 H, Carbon Dioxide 23, Anion Gap 13.0, BUN 54 H, Creatinine 1.39 H, Estimated GFR (MDRD) 48.00, BUN/ Creatinine Ratio 38.84, Glucose 263 H D, Calcium 9.0, Total Bilirubin 0.42, AST 27, ALT 22, Alkaline Phosphatase 59, Total Protein 6.5, Albumin 2.1 L, Globulin 4.4, Albumin/Globulin Ratio 0.48 08/16/17 04:30: WBC 7.26, RBC 3.67 L, Hgb 12.3 L, Hct 36.1 L, MCV 98.4 H, MCH 33.5 H, MCHC 34.1, RDW Coeff of Madi 15.3 H, Plt Count 191, Neutrophils % (Manual ) 89.0 H, Band Neutrophils % 6.0 H, Lymphocytes % (Manual) 3.0 L, Monocytes % ( Manual) 2.0, Anisocytosis Not present 08/15/17 22:22: Total Creatine Kinase 140, CK-MB (CK-2) 0.9, CK-MB (CK-2) % 0.27553, Troponin I 0.0170 ASSESSMENT: 1. LEFT LOBE PNEUMONIA 2. ALZHEIMER'S DEMENTIA WITH BEHAVIORAL DISTURBANCE 3. CHRONIC KIDNEY DISEASE PLAN: 1. Continue Rocephin IV Steroids 2. D/C telemetry due to uncooperative patient 3. Difficulty communicating due to severe dementia 4. Oxygen as cannula difficulty due to dementia 5. Fall precautions continued Plan and coordination of the patient's care discussed in the presence of Retail Office Manager and nurse. CONDITION: Stable SCRIBED BY: CAROL CARRASCO [employer] L[employer]ison scribed while in presence of service performed by Dr. Fu/JAK Hercules on 08/16/17 ([id number])
--- NOTE | 2017-08-20 14:09 | PCM.PROG ---
Attending Provider: ATTENDING PROVIDER: Dr. NATHAN OROPEZA This patient is seen with Maryan Perdue, Nurse Practitioner DATE OF SERVICE: 08/20/17 SUBJECTIVE: This 86 year old WHITE/ M was hospitalized 08/15/17. The patient is lying in bed resting comfortably still with congested cough, iv fluids still not eating well. chest x-rya yesterday shows new left consolidation. REVIEW OF SYSTEMS: CONSTITUTIONAL: Weakness. No night sweats. No fever or chills. HEENT: Eyes: No visual changes. No eye pain. No eye discharge. ENT: No runny nose. No epistaxis. No sinus pain. No odynophagia. No congestion. RESPIRATORY: Cough and congestion. No hemoptysis. No shortness of breath. CARDIOVASCULAR: No angina symptoms. No CHF symptoms. No atypical chest pain for CAD. No palpitations. No orthopnea.. GASTROINTESTINAL: No abdominal pain. No nausea or vomiting. No diarrhea or constipation. No hematemesis. No hematochezia. GENITOURINARY: No urgency. No frequency. No dysuria. No hematuria. No obstructive symptoms. No discharge. No pain. No significant abnormal bleeding. MUSCULOSKELETAL: No musculoskeletal pain; no joint swelling. NEUROLOGICAL: Awake, confused No headache. No neck pain. No syncope. No seizures. No dizziness. PSYCHIATRIC: Not anxious. No depression. No suicidal thoughts. No homicidal thoughts. SKIN: No rash. No lesions. No wounds. ENDOCRINE: No unexplained weight loss. No weight gain. HEMATOLOGIC/LYMPHATIC: No anemia. No purpura. No petechiae. No prolonged or excessive bleeding. No palpable lymph nodes. PHYSICAL EXAMINATION: GENERAL: The patient is confused, not oriented to person, place or time, lying in bed in no distress. VITAL SIGNS: Temperature 97.6 F, Pulse 65, Respiratory Rate 20, BP 166/70, Pulse Ox 98% HEENT: Head normocephalic, atraumatic. Eyes: Extraocular muscles are intact. Pupils are equal, round and reactive to light and accommodation. Ears: No lesions. Nose appeared normal. Throat: No exudate or erythema. NECK: Supple. No JVD, no carotid bruit. No lymphadenopathy or thyromegaly. LUNGS: Bilateral rhonchi. Percussion note normal. Chest symmetrical. HEART: S1, S2, no S3. No murmurs. No cyanosis or clubbing. No ascites. Pulses: Dorsalis pedis and posterior tibial pulses +1 to +2 both sides. ABDOMEN: Soft. Non-tender. Bowel sounds active. No CVA tenderness. No mass felt. EXTREMITIES: No edema. Full range of motion of all extremities, equal. NEUROLOGIC: No focal deficit. Cranial nerves II through XII are grossly intact. No headache, no double vision or headache. SKIN: Not dry. Intact. Turgor-normal. LYMPHATIC: No palpable lymph nodes/no lymphedema. MUSCULOSKELETAL: Normal joints with no swelling. Muscle tone is normal. LAB REVIEW: 08/20/17 04:30 08/20/17 04:30 08/20/17 04:30: Sodium 146 H, Potassium 4.0, Chloride 115 H, Carbon Dioxide 23, Anion Gap 12.0, BUN 35 H, Creatinine 0.92, Estimated GFR (MDRD) 78.00, BUN/ Creatinine Ratio 38.04, Glucose 194 H, Calcium 8.0 L, Total Bilirubin 0.47, AST 41 H D, ALT 141 H D, Alkaline Phosphatase 63, Total Protein 5.5 L, Albumin 2.0 L , Globulin 3.5, Albumin/Globulin Ratio 0.57 08/20/17 04:30: WBC 7.91, RBC 3.40 L, Hgb 11.7 L, Hct 33.6 L, MCV 98.8 H, MCH 34.4 H, MCHC 34.8, RDW Coeff of Madi 15.2 H, Plt Count 200, Immature Gran % (Auto ) 0.8, Neut % (Auto) 86.7, Lymph % (Auto) 5.4 L, [place] % (Auto) 7.1, Eos % (Auto ) 0.0, Baso % (Auto) 0.0, Immature Gran # (Auto) 0.1, Neut # 6.9, Lymph # 0.4 L , [place] # 0.6, Eos # 0.0, Baso # 0.0 ASSESSMENT: 1. Bilateral pneumonia 2. Hypernatremia 3. Alzheimer's dementia with behavioral disturbances 4. Chronic kidney disease PLAN: 1. Continue IV fluids 2. Continue nebs 3. Encourage eating 4. Up to chair today Plan and coordination of the patient's care discussed in the presence of Flame Channeler and nurse. CONDITION: Stable SCRIBED BY: CAROL CARRASCO, Braker Passenger Train scribed while in presence of service performed by Dr. Oropeza/Maryan Perdue, EDITH on 08/20/17 ([id number])
--- NOTE | 2017-08-20 15:01 | PN ---
DATE OF SERVICE: 08/19/17 SUBJECTIVE: The patient was examined while sitting up in bed, unable to communicate due to severe Alzheimer's Dementia. He has been hospitalized for pneumonia. He will not cooperative won't leave his oxygen on due to dementia. He is eating 25-50% of his meals prompting. He has been afebrile over the weekend. His sodium is elevated today at 151. His liver enzymes have also been elevated but have improved today. AST 75 and ALT 194. REVIEW OF SYSTEMS: CONSTITUTIONAL: No night sweats. Fatigue and confusion. No fever or chills. HEENT: Eyes: No visual changes. No eye pain. No eye discharge. ENT: No runny nose. No epistaxis. No sinus pain. No sore throat. No odynophagia. No congestion. RESPIRATORY:Cough, no congestion. No hemoptysis. No shortness of breath. CARDIOVASCULAR: No angina symptoms. No CHF symptoms. No atypical chest pain for CAD. No palpitations. No orthopnea. GASTROINTESTINAL: No abdominal pain. No nausea or vomiting. No diarrhea or constipation. No hematemesis. No hematochezia. GENITOURINARY: No urgency. No frequency. No dysuria. No hematuria. No obstructive symptoms. No discharge. No pain. No significant abnormal bleeding. MUSCULOSKELETAL: No musculoskeletal pain; no joint swelling. Leg weakness. NEUROLOGICAL: No headache. No neck pain. No syncope. No seizures. No dizziness. PSYCHIATRIC: Not anxious. No depression. No suicidal thoughts. No homicidal thoughts. SKIN: No rash. No lesions. No wounds. Multiple areas of scabbing due to chronic picking. ENDOCRINE: No unexplained weight loss. No weight gain. HEMATOLOGIC/LYMPHATIC: No anemia. No purpura. No petechiae. No prolonged or excessive bleeding. No palpable lymph nodes. PHYSICAL EXAMINATION: HEENT: Head normocephalic, atraumatic. Eyes: Extraocular muscles are intact. Pupils are equal, round and reactive to light and accommodation. Ears: No lesions. Nose appeared normal. Throat: No exudate or erythema. NECK: Supple. No JVD, no carotid bruit. No lymphadenopathy or thyromegaly. LUNGS: Clear with diminished breath sounds bilaterally. Very faint mild expiratory wheeze. Percussion note normal. Chest symmetrical. HEART: S1, S2, no S3. No murmurs. No cyanosis or clubbing. No ascites. Pulses: Dorsalis pedis and posterior tibial pulses +1 to +2 both sides. No clicks or rubs. ABDOMEN: Soft. Nontender. Bowel sounds active times four quadrants. No CVA tenderness. No mass felt. EXTREMITIES: No edema. Full range of motion of all extremities, equal. No calf tenderness. NEUROLOGIC: No focal deficit. Cranial nerves II through XII are grossly intact. No headache, no double vision or headache. The patient is alert however not oriented to person, place or time. SKIN: Dry. Intact. Turgor - normal. Areas of multiple scabbing due to chronic picking due to dementia. LYMPHATIC: No palpable lymph nodes/no lymphedema. MUSCULOSKELETAL: Normal joints with no swelling. Muscle tone is normal. ASSESSMENT: 1. Pneumonia 2. Elevated liver function which is improving 3. Hypernatremia, Will change IV fluids to D5 W 4. Alzheimer's dementia with behavioral disturbances PLAN: 1. Repeat chest x-ray today 2. Will change IV fluids to D5 regular at 75cc an hour 3. Will put him on PO Prednisone 10mg twice a day 4. Will continue to monitor Stable. TIME SPENT: More than 30 minutes. Plan and coordination of the patient's care discussed in the presence of nurse. CHRIS
[2017-08-21] MEDS: DEXTROSE 5%-WATER IV SOLN 1,000 ML IV SCH (00:38)
[2017-08-21] MEDS: BACTROBAN TP SCH ×2 (04:28→12:53)
[2017-08-21] MEDS: DUONEB NEB SCH ×2 (05:20→11:19)
[2017-08-21 05:21] LABS: BASOPHILS % (AUTO) 0.2 % (0.0-3.0); HEMATOCRIT 35.2 % (42.0-52.0); HEMOGLOBIN 12.6 g/dl (14.0-18.0); IMMATURE GRANULOCYTE % (AUTO) 0.9 % (0.0-5.0); LYMPHOCYTES # (AUTO) 0.6 K/uL (0.60-3.4); LYMPHOCYTES % (AUTO) 5.8 (10.0-50.0); MEAN CORPUSCULAR HEMOGLOBIN 34.1 pg (27.0-31.0); MEAN CORPUSCULAR HGB CONC 35.8 (31.8-35.4); MEAN CORPUSCULAR VOLUME 95.4 fl (80.0-94.0); MONOCYTES # (AUTO) 0.6 K/uL (0.4-2.0); MONOCYTES % (AUTO) 5.5 (0-10); NEUTROPHILS # (AUTO) 8.7 K/ul (2.0-6.9); NEUTROPHILS % (AUTO) 87.6; PLATELET COUNT 213 10^3/uL (140-440); RED BLOOD COUNT 3.69 10^6/ul (4.70-6.10); WHITE BLOOD COUNT 9.96 K/ul (4.2-10.2)
[2017-08-21 05:51] LABS: ALBUMIN 2.1 g/dL (3.4-5.0); ALBUMIN/GLOBULIN RATIO 0.58; ANION GAP 12.7; BILIRUBIN,TOTAL 0.68 mg/dL (0.00-1.20); BUN/CREATININE RATIO 24.32; CREATININE 0.74 mg/dL (0.60-1.10); POTASSIUM 3.7 mmol/L (3.5-5.1); TOTAL PROTEIN 5.7 g/dL (5.8-8.1)
[2017-08-21] MEDS: ROCEPHIN 1 GM in SODIUM CHLORIDE 50 ML IV SCH (08:51)
[2017-08-21] MEDS: PREDNISONE PO SCH (08:56)
[2017-08-21] MEDS: NAMENDA PO SCH (08:56)
[2017-08-21] MEDS: AGGRENOX CAPSULE PO SCH (08:56)
[2017-08-21] MEDS: XANAX PO SCH (08:56)
[2017-08-21] MEDS: PROSCAR PO SCH (08:56)
[2017-08-21] MEDS: FLOMAX PO SCH (08:56)
[2017-08-21 09:43] VITALS: BP 126/76; TEMP 98.2
--- NOTE | 2017-08-21 11:58 | PCM.PROG ---
Attending Provider: ATTENDING PROVIDER: Dr. NATHAN OROPEZA DATE OF SERVICE: 08/21/17 SUBJECTIVE: This 86 year old WHITE/ M was hospitalized 08/15/17. The patient is hospitalized with pneumonia except for confusion. REVIEW OF SYSTEMS: CONSTITUTIONAL: No night sweats. No fatigue, malaise, lethargy. No fever or chills. HEENT: Eyes: No visual changes. No eye pain. No eye discharge. ENT: No runny nose. No epistaxis. No sinus pain. No odynophagia. No congestion. RESPIRATORY: No cough, no congestion. No hemoptysis. No shortness of breath. CARDIOVASCULAR: No angina symptoms. No CHF symptoms. No atypical chest pain for CAD. No palpitations. No orthopnea.. GASTROINTESTINAL: No abdominal pain. No nausea or vomiting. No diarrhea or constipation. No hematemesis. No hematochezia. GENITOURINARY: No urgency. No frequency. No dysuria. No hematuria. No obstructive symptoms. No discharge. No pain. No significant abnormal bleeding. MUSCULOSKELETAL: No musculoskeletal pain; no joint swelling. NEUROLOGICAL: Awake, alert but confused. No headache. No neck pain. No syncope. No seizures. No dizziness. PSYCHIATRIC: Not anxious. No depression. No suicidal thoughts. No homicidal thoughts. SKIN: No rash. No lesions. No wounds. ENDOCRINE: No unexplained weight loss. No weight gain. HEMATOLOGIC/LYMPHATIC: No anemia. No purpura. No petechiae. No prolonged or excessive bleeding. No palpable lymph nodes. PHYSICAL EXAMINATION: GENERAL: The patient is confused but alert, sitting in chair in no distress. VITAL SIGNS: Temperature 98.1 F, Pulse 74, Respiratory Rate 20, BP 140/84, Pulse Ox 91% HEENT: Head normocephalic, atraumatic. Eyes: Extraocular muscles are intact. Pupils are equal, round and reactive to light and accommodation. Ears: No lesions. Nose appeared normal. Throat: No exudate or erythema. NECK: Supple. No JVD, no carotid bruit. No lymphadenopathy or thyromegaly. LUNGS: Decreased air entry but clear to auscultation. Percussion note normal. Chest symmetrical. HEART: S1, S2, no S3. No murmurs. No cyanosis or clubbing. No ascites. Pulses: Dorsalis pedis and posterior tibial pulses +1 to +2 both sides. ABDOMEN: Soft. Non-tender. Bowel sounds active. No CVA tenderness. No mass felt. EXTREMITIES: No edema. Full range of motion of all extremities, equal. NEUROLOGIC: No focal deficit. Cranial nerves II through XII are grossly intact. No headache, no double vision or headache. SKIN: Not dry. Intact. Turgor-normal. LYMPHATIC: No palpable lymph nodes/no lymphedema. MUSCULOSKELETAL: Normal joints with no swelling. Muscle tone is normal. LAB REVIEW: 08/21/17 04:30 08/21/17 04:30 08/21/17 04:30: Sodium 139, Potassium 3.7, Chloride 109 H, Carbon Dioxide 21 L, Anion Gap 12.7, BUN 18, Creatinine 0.74, Estimated GFR (MDRD) 100.00, BUN/ Creatinine Ratio 24.32, Glucose 97 D, Calcium 8.0 L, Total Bilirubin 0.68, AST 49 H, ALT 135 H, Alkaline Phosphatase 88 D, Total Protein 5.7 L, Albumin 2.1 L , Globulin 3.6, Albumin/Globulin Ratio 0.58 08/21/17 04:30: WBC 9.96, RBC 3.69 L, Hgb 12.6 L, Hct 35.2 L, MCV 95.4 H, MCH 34.1 H, MCHC 35.8 H, RDW Coeff of Madi 14.5, Plt Count 213, Immature Gran % (Auto ) 0.9, Neut % (Auto) 87.6, Lymph % (Auto) 5.8 L, [place] % (Auto) 5.5, Eos % (Auto ) 0.0, Baso % (Auto) 0.2, Immature Gran # (Auto) 0.1, Neut # 8.7 H, Lymph # 0.6 , [place] # 0.6, Eos # 0.0, Baso # 0.0 ASSESSMENT: 1. Pneumonia seems to have resolved clinically. PLAN: 1. Keflex 500 mg b.i.d. for 5 days 2. Prednisone 10 mg b.i.d. for 5 days 3. Nebs, Albuterol p.r.n. 4. To be seen on halfway rounds in 5 to 7 days with Maryan Nurse Practitioner/Dr. Oropeza. 5. CBC, CMP every two months. 6. T4, TSH every 6 months. 7. Push oral fluids. 8. D/C Crestor. 9. Discharge back to the halfway. Plan and coordination of the patient's care discussed in the presence of Helper Shear Operator and nurse. CONDITION: Stable SCRIBED BY: CAROL CARRASCO [employer] scribed while in presence of service performed by Dr. NATHAN OROPEZA on 08/21/17 ([id number])
--- NOTE | 2017-08-21 12:43 | CM.DICTOOL ---
ADMISSION: 08/15/17 16:01 DISCHARGE: August 21, 2017 DATE OF SERVICE: 08/21/17 FINAL DIAGNOSIS Pneumonia Dyslipidemia Alzheimers Dementia CKD Hypernatremia,resolved BPH LAST VITALS Temp Pulse Resp BP Pulse Ox 98.2 F 80 20 126/76 90 L 08/21/17 09:43 08/21/17 09:43 08/21/17 09:43 08/21/17 09:43 08/21/17 09:43 ACTIVE HOME MEDICATIONS Acetaminophen (Tylenol) 650 mg PO Q4H PRN Last Admin: Alprazolam (Xanax) 0.5 mg PO BID [facility] Last Admin: 08/21/17 08:56 Dose: 0.5 mg Dipyridamole/Aspirin (Aggrenox Capsule) 1 cap PO BID [facility] Last Admin: 08/21/17 08:56 Dose: 1 cap Finasteride (Proscar) 5 mg PO DAILY [facility] Last Admin: 08/21/17 08:56 Dose: 5 mg Memantine (Namenda) 10 mg PO BID [facility] Last Admin: 08/21/17 08:56 Dose: 10 mg Mupirocin (Bactroban) 1 applic TP Q8HR [facility] Last Admin: 08/21/17 04:28 Dose: 1 applic Cyanocobalamin (Vitamin B-12) 500 mcg PO Daily Last Admin: Sennosides/Docusate Sodium 1 tablet Daily Last Admin: Tamsulosin HCl (Flomax) 0.4 mg PO DAILY [facility] Last Admin: 08/21/17 08:56 Dose: 0.4 mg ALLERGIES No Known Allergies Allergy (Verified 08/02/17 08:45) NEW PRESCRIPTIONS: ALBUTEROL NEBS 0.83% TAKE 1 TWICE A DAY PREDNISONE 10 MG BID FOR 5 DAYS. TAKE WITH MEALS AND START TONIGHT AT SUPPER KEFLEX 500 MG BID FOR 5 DAYS SMOKING: Not Applicable DISEASE SPECIFIC EDUCATION: Not Applicable LAB REVIEW: 08/21/17 04:30 08/21/17 04:30 08/21/17 04:30: Sodium 139, Potassium 3.7, Chloride 109 H, Carbon Dioxide 21 L, Anion Gap 12.7, BUN 18, Creatinine 0.74, Estimated GFR (MDRD) 100.00, BUN/ Creatinine Ratio 24.32, Glucose 97 D, Calcium 8.0 L, Total Bilirubin 0.68, AST 49 H, ALT 135 H, Alkaline Phosphatase 88 D, Total Protein 5.7 L, Albumin 2.1 L , Globulin 3.6, Albumin/Globulin Ratio 0.58 08/21/17 04:30: WBC 9.96, RBC 3.69 L, Hgb 12.6 L, Hct 35.2 L, MCV 95.4 H, MCH 34.1 H, MCHC 35.8 H, RDW Coeff of Madi 14.5, Plt Count 213, Immature Gran % (Auto ) 0.9, Neut % (Auto) 87.6, Lymph % (Auto) 5.8 L, [place] % (Auto) 5.5, Eos % (Auto ) 0.0, Baso % (Auto) 0.2, Immature Gran # (Auto) 0.1, Neut # 8.7 H, Lymph # 0.6 , [place] # 0.6, Eos # 0.0, Baso # 0.0 IMAGE REVIEW: Discharge to [facility] Diet: Regular, Regular texture and consistency Activity: Up to chair for meals and as tolerated Medications to Discontinue: Rosuvastatin (Crestor) prison orders: Vital Signs daily for 1 week Oxygen saturation daily for 1 week Oxygen at 2 liters per nasal cannula for oxygen saturation below 90% Incontinent care prn Decubitus precautions CBC, CMP every 2 months T4, TSH every 6 months Maryan Perdue APRN/Dr. Fu to see on [facility] rounds in 5-7 days. The patient is a DNR Mr. Reid is alert to person. He is non-verbal, but mutters and mumbles in response to questions. He is total care and requires assistance of 2 staff members for transfers from the bed to the chair. He requires feeding by the nursing staff. Meal intakes are poor at 10-25%. He is incontinent of urine. Upper extremities have areas of eccchymosis and scabbing. The skin to the upper extremities is dry. No decubitus ulcers are noted by the nursing staff. Sanket Fu MD
--- NOTE | 2017-08-22 10:18 | PN ---
DATE OF SERVICE: 08/20/17 SUBJECTIVE: 86 year old white male hospitalized with pneumonia. The patient is being treated with IV antibiotics and steroids. The patient's condition seems to have improved. He is less confused, alert and fed. The patient is eating very well. CONDITION: Stable The patient was seen and examined with the Nurse Practitioner and Loader Operator/Ground Leader. TIME SPENT: More than 30 minutes. Plan and coordination of the patient's care discussed in the presence of nurse. CHRIS
--- NOTE | 2017-08-22 13:14 | HP ---
DATE OF SERVICE: 08/15/17 HISTORY OF PRESENT ILLNESS: 86-year-old male who presented to the emergency room at [facility]. He is a long term resident at [facility]. They had called our office and stated he was having some lethargy, weakness, refusing to eat, slight cough and was having oxygen saturations down to 78% and would not leave his oxygen on due to severe dementia. He was subsequently admitted. REVIEW OF SYSTEMS: CONSTITUTIONAL: Malaise, weakness and confusion. No night sweats. No fever or chills. HEENT: Eyes: No visual changes. No eye pain. No eye discharge. ENT: No runny nose. No epistaxis. No sinus pain. No sore throat. No odynophagia. No ear pain. No congestion. RESPIRATORY: No cough, no congestion. No hemoptysis. Positive for labored breathing and coughing. CARDIOVASCULAR: No angina symptoms. No CHF symptoms. No atypical chest pain for CAD. No palpitations. No orthopnea. GASTROINTESTINAL: No abdominal pain. No nausea or vomiting. No diarrhea or constipation. No hematemesis. No hematochezia. GENITOURINARY: No urgency. No frequency. No dysuria. No hematuria. No obstructive symptoms. No discharge. No pain. No significant abnormal bleeding. MUSCULOSKELETAL: Positive for generalized weakness. No joint swelling or redness. NEUROLOGICAL: Confused. No headache. No neck pain. No syncope. No seizures. No dizziness. PSYCHIATRIC: Not anxious. No depression. No suicidal thoughts. No homicidal thoughts. SKIN: He has multiple scabbed areas due to chronic picking due to dementia. ENDOCRINE: No unexplained weight loss. No weight gain. HEMATOLOGIC/LYMPHATIC: No anemia. No purpura. No petechiae. No prolonged or excessive bleeding. No palpable lymph nodes. PAST MEDICAL HISTORY: 1. Anemia 2. Dyslipidemia 3. Alzheimer's dementia, severe 4. BPH 5. CKD PAST SURGICAL HISTORY: 1. Prostate resection due to BPH PERSONAL/FAMILY/SOCIAL HISTORY: Resident of [place]. (spouse also in [place]). Retired. No substance use. Never smoked. No alcohol use. MEDICATIONS: (Home) 1. Alprazolam (Xanax) 0.5 mg p.o. b.i.d. 2. Acetaminophen (Tylenol) 650 mg p.o. q.4h p.r.n. 3. Mupirocin (Bactroban) 15 gm TP q.12h p.r.n. 4. Tamsulosin (Flomax) 0.4 mg p.o. daily 5. Memantine 10 mg p.o. b.i.d. 6. Finasteride 5 mg p.o. daily 7. Sennosides/Docusate Sodium one each p.o. daily 8. Rosuvastatin (Crestor) 5 mg p.o. bedtime 9. Cyanocobalamin (Vitamin B12) 500 mcg p.o. daily 10. Aspirin/Dipyridamole (Aggrenox 25 mg-200 mg capsule) one tab p.o. b.i.d. 11. Mupirocin (Bactroban) 15 gm one application TP q.8hr ALLERGIES: NKDA PHYSICAL EXAMINATION: GENERAL: The patient is ill-appearing in no distress. HEENT: Head normocephalic, atraumatic. Eyes: Extraocular muscles are intact. Pupils are equal, round and reactive to light and accommodation. Conjunctivae clear. ENT: No lesions. Nose appeared normal. Throat: No exudate or erythema. Dry mucosa. NECK: Supple. No JVD, no carotid bruit. No lymphadenopathy or thyromegaly. LUNGS: Diminished breath sounds bilaterally. Respirations nonlabored. Crepitations found in the left lower lobe. Percussion note normal. Chest symmetrical. HEART: Regular rate and rhythm. S1, S2, no S3. No murmurs, clicks or rubs. No cyanosis or clubbing. No ascites. Pulses: Dorsalis pedis and posterior tibial pulses +1 to +2 both sides. ABDOMEN: Soft. Nontender. Bowel sounds active times four quadrants. No hepatosplenomegaly. No distention. No CVA tenderness. No mass felt. EXTREMITIES: No edema. Full range of motion of all extremities, equal. NEUROLOGIC: The patient is alert; however, not oriented to person, place or time. No focal deficit. Cranial nerves II through XII are grossly intact. No headache, no double vision or headache. SKIN: Warm and dry. Pale. The patient does have multiple scabbing areas due to chronic picking. LYMPHATIC: No palpable lymph nodes/no lymphedema. MUSCULOSKELETAL: Decreased strength, weakness. No edema. No calf tenderness. CT FINDINGS/LABS/ABGs: CT of the head performed with no acute intracranial abnormality, chronic ischemic disease. CT of the chest revealed consolidation on the right lower lobe consistent with pneumonia. Left lower lobe pulmonary nodule. White count 8.9, hemoglobin 13.8, hematocrit 39.6, lactic acid 23.9. Sodium 146, potassium 3.6, BUN 51, creatinine 1.6, glucose 147, AST 18, ALT 18, albumin 2.9, globulin 4.9, total protein 7.8, TSH 0.77. ABGs Oxygen saturation 93, pH 7.492, pc02 31.2, p02 61, HC03 23.9, c02 25, base excess of 1, FI02 21. ASSESSMENT: 1. RIGHT LOWER LOBE PNEUMONIA 2. PULMONARY NODULES 3. DEHYDRATION 4. SHORTNESS OF BREATH 5. SEVERE ALZHEIMER'S DEMENTIA 6. GENERALIZED WEAKNESS PLAN: 1. We will admit to the floor 2. Will place on Rocephin 1 gm IV daily 3. Start Duonebs q.6hr as he will tolerate 4. Oxygen as needed as he will tolerate as he does not like to wear the cannula 5. Place on Solu-Medrol 125 mg q.8 6. CBC, CMP daily 7. Fall precautions as patient will get up and is confused 8. Regular diet as needed TIME SPENT: More than 70 minutes. MTDD
--- NOTE | 2017-09-05 14:42 | DS ---
DATE OF SERVICE: 08/21/17 FINAL DIAGNOSIS: 1. PNEUMONIA 2. DYSLIPIDEMIA 3. ALZHEIMER'S DEMENTIA 4. CKD 5. HYPERNATREMIA RESOLVED 6. BPH DISCHARGE INSTRUCTIONS: 1. Followup appointment: Dr. Fu/EDITH Steinberg to see on intermediate rounds in 5 to 7 days. 2. Oxygen saturation daily for one week. 3. Oxygen at 2L/NC for oxygen saturation below 90%. 4. Incontinent Care p.r.n. 5. Decubitus precaution. 6. CBC, CMP every two months. 7. T4, TSH every 6 months. 8. The patient is DNR. MEDICATIONS AT DISCHARGE: Alprazolam (Xanax) 0.5 mg p.o. b.i.d. Tylenol 650 mg p.o. q.4h p.r.n. Flomax 0.4 mg p.o. daily Memantine 10 mg p.o. b. i.d. Finasteride 5 mg p.o. daily Vitamin B12 500 mcg p.o. daily Aspirin/Dipyridamole one tab p.o. b.i.d. Mupirocin (Bactroban) 15 gm one application TP q.8hr Sennosides/Docusate Sodium one tablet daily NEW PRESCRIPTIONS: Albuterol nebs 0.83% take one twice a day Prednisone 10 mg b.i.d. for 5 days, give with meals and start tonight at supper Keflex 500 mg b.i.d. for 5 days, next dose due tonight DIET INSTRUCTIONS: Regular diet ACTIVITY: Up to chair for meal and as tolerated SMOKING: N/A DISEASE SPECIFIC EDUCATION: N/A HOSPITAL COURSE: Mr. Reid is alert to person. He is non-verbal but mutters and mumbles in response to questions. He is total care and requires assistance of 2 staff members for transfers from bed to chair. He requires feeding by [facility] staff. Meal intakes are poor at 10-25%. He is incontinent of urine. Upper extremities have areas of ecchymosis and scabbing. The skin to the upper extremities is dry. No decubitus ulcers are noted by the nursing staff. TIME SPENT: More than 60 minutes. [facility]
--- NOTE | 2017-09-13 13:43 | PN ---
DATE OF SERVICE: 08/19/17 SUBJECTIVE: The patient was seen and examined with Nurse Practitioner. The patient was admitted with pneumonia. The patient is confused as usual but clinically has improved. We will continue antibiotics and steroids. PHYSICAL EXAMINATION: HEENT: Head normocephalic, atraumatic. Eyes: Extraocular muscles are intact. Pupils are equal, round and reactive to light and accommodation. Ears: No lesions. Nose appeared normal. Throat: No exudate or erythema. NECK: Supple. No JVD, no carotid bruit. No lymphadenopathy or thyromegaly. LUNGS: Decreased breath sounds with mild wheeze but good air entry. Percussion note normal. Chest symmetrical. HEART: S1, S2, no S3. No murmurs. No cyanosis or clubbing. No ascites. Pulses: Dorsalis pedis and posterior tibial pulses +1 to +2 both sides. ABDOMEN: Soft. Nontender. Bowel sounds active. No CVA tenderness. No mass felt. EXTREMITIES: No edema. Full range of motion of all extremities, equal. NEUROLOGIC: No focal deficit. Cranial nerves II through XII are grossly intact. No headache, no double vision or headache. SKIN: Not dry. Intact. Turgor - better. LYMPHATIC: No palpable lymph nodes/no lymphedema. MUSCULOSKELETAL: Normal joints with no swelling. Muscle tone is normal. CONDITION: Stable TIME SPENT: More than 30 minutes. Plan and coordination of the patient's care discussed in the presence of nurse. CHRIS
--- NOTE | 2017-09-13 13:54 | PN ---
DATE OF SERVICE: 08/17/17 SUBJECTIVE: 86 year old white male hospitalized with pneumonia. The patient is improving clinically but he is demented. He is resident of the [place]. REVIEW OF SYSTEMS: CONSTITUTIONAL: No night sweats. No fatigue, malaise, lethargy. No fever or chills. HEENT: Eyes: No visual changes. No eye pain. No eye discharge. ENT: No runny nose. No epistaxis. No sinus pain. No sore throat. No odynophagia. No congestion. RESPIRATORY: No cough, no congestion. No hemoptysis. No shortness of breath. CARDIOVASCULAR: No angina symptoms. No CHF symptoms. No atypical chest pain for CAD. No palpitations. No orthopnea. GASTROINTESTINAL: No abdominal pain. No nausea or vomiting. No diarrhea or constipation. No hematemesis. No hematochezia. Appetite is not that good. GENITOURINARY: No urgency. No frequency. No dysuria. No hematuria. No obstructive symptoms. No discharge. No pain. No significant abnormal bleeding. MUSCULOSKELETAL: No musculoskeletal pain; no joint swelling. NEUROLOGICAL: No headache. No neck pain. No syncope. No seizures. No dizziness. Still confused. PSYCHIATRIC: Not anxious. No depression. No suicidal thoughts. No homicidal thoughts. SKIN: No rash. No lesions. No wounds. ENDOCRINE: No unexplained weight loss. No weight gain. HEMATOLOGIC/LYMPHATIC: No anemia. No purpura. No petechiae. No prolonged or excessive bleeding. No palpable lymph nodes. PHYSICAL EXAMINATION: GENERAL: The patient is confused but alert. VITAL SIGNS: Temperature 96.8, pulse 76, respiratory rate 18, blood pressure 128/68 and pulse ox 90% on room air. HEENT: Head normocephalic, atraumatic. Eyes: Extraocular muscles are intact. Pupils are equal, round and reactive to light and accommodation. Ears: No lesions. Nose appeared normal. Throat: No exudate or erythema. NECK: Supple. No JVD, no carotid bruit. No lymphadenopathy or thyromegaly. LUNGS: Clear to auscultation. Percussion note normal. Chest symmetrical. HEART: S1, S2, no S3. No murmurs. No cyanosis or clubbing. No ascites. Pulses: Dorsalis pedis and posterior tibial pulses +1 to +2 both sides. ABDOMEN: Soft. Nontender. Bowel sounds active. No CVA tenderness. No mass felt. EXTREMITIES: No edema. Full range of motion of all extremities, equal. NEUROLOGIC: No focal deficit. Cranial nerves II through XII are grossly intact. No headache, no double vision or headache. SKIN: Somewhat dry. Intact. Turgor - normal. LYMPHATIC: No palpable lymph nodes/no lymphedema. MUSCULOSKELETAL: Normal joints with no swelling. Muscle tone is normal. LABS: Hgb 12.3, hct 35, WBC 10,900 normal differential, creatinine 1.1, BUN 55, potassium 3.3, glucose 167. ASSESSMENT: 1. Pneumonia 2. Dementia 3. Moderate to severe Diabetes mellitus 4. Renal Azotemia 5. Hypokalemia 6. Anemia 7. Hypertension 8. Dyslipidemia PLAN: 1. Continue all the medication 2. Continue IV fluids, slow 75cc 3. Continue Solu-Medrol 4. Zithromax and Rocephin to be continued 5. Monitor CBC and CMP CONDITION: Stable PROGNOSIS: Guarded TIME SPENT: More than 30 minutes. Plan and coordination of the patient's care discussed in the presence of nurse. CHRIS
--- NOTE | 2017-09-13 13:58 | PN ---
DATE OF SERVICE: 08/18/17 SUBJECTIVE: 86 year old white male hospitalized with pneumonia. The patient's condition has improved. He is still confused. REVIEW OF SYSTEMS: CONSTITUTIONAL: No night sweats. No fatigue, malaise, lethargy. No fever or chills. HEENT: Eyes: No visual changes. No eye pain. No eye discharge. ENT: No runny nose. No epistaxis. No sinus pain. No sore throat. No odynophagia. No congestion. RESPIRATORY: No cough, no congestion. No hemoptysis. No shortness of breath. CARDIOVASCULAR: No angina symptoms. No CHF symptoms. No atypical chest pain for CAD. No palpitations. No orthopnea. GASTROINTESTINAL: No abdominal pain. No nausea or vomiting. No diarrhea or constipation. No hematemesis. No hematochezia. GENITOURINARY: No urgency. No frequency. No dysuria. No hematuria. No obstructive symptoms. No discharge. No pain. No significant abnormal bleeding. MUSCULOSKELETAL: No musculoskeletal pain; no joint swelling. NEUROLOGICAL: No headache. No neck pain. No syncope. No seizures. No dizziness. Confusion. PSYCHIATRIC: Not anxious. No depression. No suicidal thoughts. No homicidal thoughts. SKIN: No rash. No lesions. No wounds. ENDOCRINE: No unexplained weight loss. No weight gain. HEMATOLOGIC/LYMPHATIC: No anemia. No purpura. No petechiae. No prolonged or excessive bleeding. No palpable lymph nodes. PHYSICAL EXAMINATION: GENERAL: The patient is confused but alert. VITAL SIGNS: Temperature 96.9, pulse 83, respiratory rate 22, blood pressure 116/64 and pulse ox 90% on room air. HEENT: Head normocephalic, atraumatic. Eyes: Extraocular muscles are intact. Pupils are equal, round and reactive to light and accommodation. Ears: No lesions. Nose appeared normal. Throat: No exudate or erythema. NECK: Supple. No JVD, no carotid bruit. No lymphadenopathy or thyromegaly. LUNGS: Decreased breath sounds but clear to auscultation. Percussion note normal. Chest symmetrical. HEART: S1, S2, no S3. No murmurs. No cyanosis or clubbing. No ascites. Pulses: Dorsalis pedis and posterior tibial pulses +1 to +2 both sides. ABDOMEN: Soft. Nontender. Bowel sounds active. No CVA tenderness. No mass felt. EXTREMITIES: No edema. Full range of motion of all extremities, equal. NEUROLOGIC: No focal deficit. Cranial nerves II through XII are grossly intact. No headache, no double vision or headache. SKIN: Not dry. Intact. Turgor - normal. LYMPHATIC: No palpable lymph nodes/no lymphedema. MUSCULOSKELETAL: Normal joints with no swelling. Muscle tone is normal. LABS: hgb 11.7, hct 33, WBC 6,600 normal differential, creatinine 1, BUN 57, potassium 3.5 ASSESSMENT: 1. Pneumonia seems to be resolving 2. Dehydration seems to be resolving the patient's skin turgor is better. The patient is already getting 75cc per hour. 3. PLAN: 1. Blood sugar more or less controlled on sliding scale. 2. Continue antibiotics 3. NEBS treatment CONDITION: Stable. TIME SPENT: More than 30 minutes. Plan and coordination of the patient's care discussed in the presence of nurse. CHRIS
== END 2017-08-21 14:51 | disposition home or self-care (01) | DRG 194 ==
LOC: ED 14:20 → MEDSURG A 16:01
PROVIDERS: ADMIT Internal Medicine; ATTEND Internal Medicine
DX: J18.9 Pneumonia, unspecified organism (principal); E87.0 Hyperosmolality and hypernatremia; F02.81 Dementia in other diseases classified elsewhere, unspecified severity, with behavioral disturbance; G30.9 Alzheimer's disease, unspecified; R06.02 Shortness of breath; R79.89 Other specified abnormal findings of blood chemistry; E87.6 Hypokalemia; D64.9 Anemia, unspecified; I10 Essential (primary) hypertension; E11.9 Type 2 diabetes mellitus without complications; E78.5 Hyperlipidemia, unspecified; N18.9 Chronic kidney disease, unspecified; N40.0 Benign prostatic hyperplasia without lower urinary tract symptoms; R58 Hemorrhage, not elsewhere classified; R41.82 Altered mental status, unspecified; R00.0 Tachycardia, unspecified; F91.8 Other conduct disorders; R53.1 Weakness; Z79.899 Other long term (current) drug therapy
CPT/HCPCS: 36415; 80053; 82550; 82553; 82803; 82962; 83605; 83880; 84145; 84439; 84443; 84484; 85007; 85025; 85610; 85730; 87040; 87081; 93005; 93010; 94640; 99223; 99232; 99239; 99284